=== PATIENT | male | born 1970 | race Two or more races ===

== ENCOUNTER 2020-09-14 11:34 | Inpatient (IN) | payer OTHER ==
[~2020-09-14] VITALS: Ht 175.3 cm; Wt 71.7 kg
== END 2020-09-21 13:16 | disposition home or self-care (01) | DRG 660 ==
LOC: ER 11:34 → MEDI 20:21
PROVIDERS: Surgery; ADMIT Internal Medicine; ATTEND Internal Medicine
PROC: 0T778DZ Dilation of Left Ureter with Intraluminal Device, Via Natural or Artificial Opening Endoscopic (ICD-10-PCS; principal; 2020-09-19 21:00)
DX: N13.8 Other obstructive and reflux uropathy (principal); N39.0 Urinary tract infection, site not specified; N20.1 Calculus of ureter; M06.8A Other specified rheumatoid arthritis, other specified site; E11.65 Type 2 diabetes mellitus with hyperglycemia; K59.00 Constipation, unspecified; M10.9 Gout, unspecified; Z20.822 Contact with and (suspected) exposure to COVID-19

== ENCOUNTER → 2020-09-26 13:20 | Outpatient (CLI) | payer OTHER ==
[~2020-09-26 13:20] MED LIST: LEVOFLOXACIN500 MG PO; TAMS0.4C PO; ULTRAM50 MG PO
== END | disposition home or self-care (01) ==
LOC: LAB 13:20
PROVIDERS: ATTEND Surgery
DX: N20.1 Calculus of ureter (principal)

== ENCOUNTER 2020-10-01 10:17 | Day surgery (SDC) | payer OTHER ==
[2020-10-01] MEDS ORDERED: TAMS0.4C PO (16:48)
[2020-10-01] MEDS ORDERED: ULTRAM50 MG PO (16:51)
[2020-10-01] MEDS ORDERED: LEVOFLOXACIN500 MG PO (16:52)
== END 2020-10-01 20:35 | disposition home or self-care (01) ==
LOC: CIR.AMB 10:17
PROVIDERS: ATTEND Surgery
DX: N20.1 Calculus of ureter (principal); Z20.822 Contact with and (suspected) exposure to COVID-19